=== PATIENT | female | born 1995 | race Two or more races ===

== ENCOUNTER 2025-03-26 05:40 | Inpatient (IN) | payer OTHER ==
[~2025-03-26] VITALS: Ht 154.9 cm; Wt 61.7 kg
[2025-03-26] MEDS ORDERED: RINGERS SOLUTION,LACTATED 1,000 ML IV SCH (05:45)
[2025-03-26 06:02] VITALS: BP 110/69
[2025-03-26 06:04] VITALS: BP 110/69
[2025-03-26 06:58] LABS: URINE APPEARANCE Clear; URINE BILIRRUBIN Negative (NEGATIVE); URINE BLOOD Negative; URINE COLOR Yellow; URINE GLUCOSE Negative (NEGATIVE); URINE KETONE Trace (NEGATIVE); URINE LEUKOCYTE Trace; URINE NITRATE Negative; URINE PROTEIN Negative (NEGATIVE); URINE UROBILINOGEN 1.0 E.U./dl
[2025-03-26] MEDS ORDERED: PRENATAL + DHA1 EAC1 PO (06:59)
[2025-03-26 07:01] LABS: URINE BACTERIA 2464.8 uL (0.0-1933); URINE EPITHELIAL CELLS 22.6 uL (0.0-38.8); URINE RBC 3.5 uL (0.0-20.8); URINE WBC 37.8 uL (0.0-23.2)
[2025-03-26] MEDS ORDERED: PEPCID AC20 MG PO (07:01)
[2025-03-26 07:12] LABS: BASO % 0.9 % (0.1-1.2); EOS # 0.39 (0.04-0.54); EOS % 3.6 % (0.7-7.0); LYMPH # 2.67 (1.18-3.74); LYMPH % 24.3 % (19.3-53.1); MEAN PLATELET VOLUME 13.30 fl (9.4-12.4); MONO # 0.78 (0.24-0.82); MONO % 7.1 % (4.7-12.5); NEUT # 6.99 (1.56-6.13); NEUT % 63.7 % (34.0-71.1); RED CELL DISTRIBUTION WIDTH 13.4 % (11.6-14.4)
[2025-03-26 07:15] LABS: URINE CAST 0.14 uL (0.0-1.40)
[2025-03-26 07:25] VITALS: BP 127/77
[2025-03-26 07:36] LABS: INR < 0.93
[2025-03-26] MEDS ORDERED: OXYTOCIN 500 ML IV SCH (07:45)
[2025-03-26 08:10] LABS: ALT/SGPT 14.0 U/L (12-78); AST/SGOT 13.0 U/L (15-37); BILIRUBIN TOTAL 0.23 mg/dL (0.3-1.2); BUN CREA RATIO 14.0 (7.0-25.0); CREATININE SERUM 0.64 mg/dL (0.55-1.02); GFR 110.49; GLOBULINA 3.6 G/DL (2.4-3.5); GLUCOSE FASTING 75.0 mg/dL (65-100); OSMOLALITY SERUM 277.0 MOSM/KG (275-295)
[2025-03-26 11:18] VITALS: BP 121/79
[2025-03-26] MEDS ORDERED: PROMETHAZINE HCL 25 MG/ML AMPUL IV NR (13:45)
[2025-03-26] MEDS ORDERED: MORPHINE SULFATE 4 MG/ML CARTRIDGE IV ONE (13:45)
[2025-03-26 15:18] VITALS: BP 121/76
[2025-03-26] MEDS ORDERED: CEFAZOLIN SODIUM 1,000 MG VIAL IV STA (17:55)
[2025-03-26] MEDS ORDERED: OXYTOCIN 10 UNITS/ML VIAL IV ONE (19:15)
[2025-03-26] MEDS ORDERED: ERYTHROMYCIN BASE OPHT 1GM EACH TUBE OP ONE (19:15)
[2025-03-26] MEDS ORDERED: OXYTOCIN 1,000 ML IV SCH (19:45)
[2025-03-26] MEDS ORDERED: MORPHINE SULFATE 4 MG/ML CARTRIDGE IV PRN (19:45)
[2025-03-26] MEDS ORDERED: ONDANSETRON HCL 2 MG/ML VIAL IV PRN (19:45)
[2025-03-26] MEDS ORDERED: SIMETHICONE 125 MG CAPSULE PO SCH (21:00)
[2025-03-26 22:16] VITALS: BP 120/70
[2025-03-27 01:48] LABS: BASO % 0.2 % (0.1-1.2); EOS # 0.05 (0.04-0.54); EOS % 0.3 % (0.7-7.0); LYMPH # 1.65 (1.18-3.74); LYMPH % 8.5 % (19.3-53.1); MEAN PLATELET VOLUME 13.30 fl (9.4-12.4); MONO # 1.29 (0.24-0.82); MONO % 6.6 % (4.7-12.5); NEUT # 16.36 (1.56-6.13); NEUT % 83.9 % (34.0-71.1); RED CELL DISTRIBUTION WIDTH 12.9 % (11.6-14.4)
[2025-03-27 02:00] VITALS: BP 122/73
[2025-03-27 08:00] VITALS: BP 109/67
[2025-03-27] MEDS ORDERED: NAPROXEN 500 MG TABLET PO PRN (09:00)
[2025-03-27] MEDS ORDERED: ACETAMINOPHEN WITH CODEINE 1 UDTAB TABLET PO PRN (09:00)
[2025-03-27] MEDS ORDERED: DOCUSATE SODIUM 100MG CAP PO SCH (09:00)
[2025-03-27 16:00] VITALS: BP 102/65
[2025-03-28 00:27] VITALS: BP 106/60
[2025-03-28 08:00] VITALS: BP 97/64
[2025-03-28 16:46] VITALS: BP 107/69
[2025-03-29] VITALS: BP 100/60
[2025-03-29 08:14] VITALS: BP 110/69
[2025-03-29] MEDS ORDERED: COLACE100 MG PO (09:15)
[2025-03-29] MEDS ORDERED: NAPROXEN500 MG PO (09:15)
== END 2025-03-29 13:19 | disposition home or self-care (01) | DRG 788 ==
LOC: LDR 05:40 → OB/GYN 20:11
PROVIDERS: ADMIT Obstetrics & Gynecology; ATTEND Obstetrics & Gynecology
PROC: 4A1HXCZ Monitoring of Products of Conception, Cardiac Rate, External Approach (ICD-10-PCS; 2025-03-26)
PROC: 10D00Z1 Extraction of Products of Conception, Low, Open Approach (ICD-10-PCS; principal; 2025-03-26 17:00)
DX: O82 Encounter for cesarean delivery without indication (principal); O62.1 Secondary uterine inertia; O64.0XX0 Obstructed labor due to incomplete rotation of fetal head, not applicable or unspecified; Z3A.38 38 weeks gestation of pregnancy; Z37.0 Single live birth